=== PATIENT | female | born 1945 | race Caucasian/White ===

== ENCOUNTER 2017-11-20 18:53 | Emergency (ER) | payer BC, OTHER ==
[~2017-11-20] VITALS: Ht 152.4 cm; Wt 87.6 kg
[~2017-11-20 18:53] MED LIST: ACET-1256 PO; ARTIOIN2 OP; ASPI-428 PO; DABI150C3 PO; EZET10TA47 PO; HYDR25TA4 PO; LPR25 PO; OMEP20CA59 PO; RANO500T PO; VSC/5 PO
[2017-11-20 19:00] VITALS: TEMP 36.8; Ht 152.4 cm; Wt 87.6 kg
--- NOTE | 2017-11-20 19:35 | DIAGNOSTIC IMAGING REPORT ---
CT SCAN OF THE BRAIN WITHOUT IV CONTRAST CLINICAL HISTORY: Fall. Head injury. COMPARISON STUDY: CT of the brain dated 05/05/2016. TECHNIQUE: Unenhanced axial CT scan of the brain is performed from the vertex to the skull base. A dose lowering technique was utilized adhering to the principles of ALARA. CT DOSE: 537.48 mGy.cm FINDINGS: Brain parenchyma: There are age-related involutional changes noting mild subcortical and periventricular microangiopathic change. There is no hemorrhage, mass effect, or evidence of acute territorial ischemia by CT criteria. A chronic lacunar infarct is seen in the right adler radiata. Olivares-white matter is preserved. No extra-axial fluid collection is seen. Ventricles, sulci, cisterns: Prominent secondary to involutional change. Intracranial vasculature: There is atherosclerotic calcification of the cavernous carotid arteries. Calvarium: The skeletal structures are osteopenic. No depressed calvarial fracture is seen. Sinuses and mastoids: The visualized paranasal sinuses are clear. The mastoid air cells are well pneumatized. Orbits: The bony orbits are grossly intact. There is a left ocular lens implant. IMPRESSION: There is no hemorrhage, mass effect, or evidence of acute territorial ischemia by CT criteria. Electronically signed by: Jovi Stone M.D. 11/20/2017 7:34 PM Dictated Date/Time: 11/20/2017 7:32 PM
[2017-11-20] MEDS ORDERED: LPT/40 PO (19:58)
[2017-11-20] MEDS ORDERED: DTRSR/10 PO (19:58)
[2017-11-20] MEDS ORDERED: WARF4TAB PO (19:58)
[2017-11-20] MEDS ORDERED: PANT40TA PO (19:58)
--- NOTE | 2017-11-20 20:36 | DIAGNOSTIC IMAGING REPORT ---
CT SCAN OF THE CERVICAL SPINE CLINICAL HISTORY: Fall. Neck pain. COMPARISON STUDY: No priors. TECHNIQUE: CT scan of the cervical spine is performed from the skull base to the upper thoracic spine. Images are reviewed in the axial, sagittal, and coronal planes. IV contrast was not administered for this examination. A dose lowering technique was utilized adhering to the principles of ALARA. CT DOSE: 250.09 mGy.cm FINDINGS: Skeletal structures: The skeletal structures are osteopenic. There is no evidence of fracture or subluxation involving the cervical spine. Vertebral body height and alignment are maintained. There is straightening of the cervical lordosis. Anterior osteophytes are seen throughout. The odontoid process and lateral masses are intact. The atlantoaxial articulation is preserved noting advanced productive degenerative change with bony overgrowth, sclerosis, and narrowing of the interval. The spinous processes appear intact. There is moderate multilevel cervical spondylosis. Uncovertebral and facet arthropathy contribute to neural foraminal stenosis at several levels. Intervertebral discs: There is moderate to advanced disc space narrowing seen at C5-C6 and C6-C7. Mild disc space narrowing is seen at the remaining cervical levels. Central canal: Large posterior disc osteophyte complexes seen at C3-C4, C4-C5, and C5-C6 likely contribute to multilevel acquired compromise of the central canal. Soft tissues: The prevertebral and paraspinous soft tissues are within normal limits. A punctate calcified sialolith is noted in the left parotid gland. Calvarium: The visualized calvarium at the skull base appears intact. Brain parenchyma: Partially visualized brain parenchyma the skull base is within normal limits. Sinuses and mastoids: Trace mucosal thickening is seen in the left maxillary antra. The mastoid air cells are well pneumatized. Lung apices: Clear as visualized. IMPRESSION: 1. There is no evidence of fracture or subluxation involving the cervical spine. 2. Osteopenia and spondylotic change as above. Electronically signed by: Jovi Stone M.D. 11/20/2017 8:35 PM Dictated Date/Time: 11/20/2017 8:31 PM
[2017-11-20 21:24] VITALS: BP 140/80; PULSE 57; O2SAT 95
--- NOTE | 2017-11-21 00:32 | EMERGENCY ROOM VISIT NOTE ---
History First contact with patient: 19:04 Chief Complaint: FALL Stated Complaint: FELL, STRIKING HEAD AGAINST HOUSE SIDING History of Present Illness The patient is a 72 year old female who presents to the Emergency Room with complaints of a headache after tripping and falling against the sliding of her house this afternoon. The patient reports that she tripped on a yañez. The patient reports that she otherwise landed on all fours, but denies any injury to her extremities, chest, neck or back. She reports mostly a frontal headache with an unusual fullness posteriorly. She also reports initial visual disturbance that has resolved. She has noticed light and motion sensitivity since the injury. She also had some mild nausea on her way to the emergency department. The patient denies any prior history of intracranial bleed. 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 She is currently on Coumadin. She does report persistent mild left- sided weakness. The patient rates her headache a 5 out of 10. Review of Systems 10 system review was performed and was negative except for pertinent positives and negatives as indicated in history of present illness Past Medical/Surgical History Medical Problems: (1) History of breast cancer (2) Hypertension (3) Paroxysmal atrial fibrillation Surgical Problems: (1) Status post cardiac catheterization (2) Status post cataract extraction (3) Status post cholecystectomy (4) Status post hysterectomy (5) Status post partial mastectomy of right breast (6) Status post tonsillectomy Family History Asthma SISTER SISTER COPD (chronic obstructive pulmonary disease) FATHER Myocardial infarction MOTHER Stroke MOTHER SISTER Social History Smoking Status: Never Smoker Drug Use: none Marital Status: Housing Status: lives with family Current/Historical Medications Scheduled Aspirin (Ecotrin Low Strength), 81 MG PO DAILY Atorvastatin (Lipitor), 40 MG PO DAILY Ezetimibe (Zetia), 10 MG PO DAILY Hydrochlorothiazide (Hctz), 25 MG PO DAILY Oxybutynin Chloride (Oxybutynin Chloride ER), 10 MG PO DAILY Pantoprazole (Protonix), 40 MG PO DAILY Ranolazine (Ranexa), 1 TAB PO BID Warfarin Sodium (Coumadin), 4 MG PO DAILY Physical Exam Vital Signs Date Time Temp Pulse Resp B/P (MAP) Pulse Ox O2 Delivery O2 Flow Rate FiO2 11/20/17 21:24 57 18 140/80 95 11/20/17 19:00 36.8 60 18 173/73 95 Room Air Physical Exam CONSTITUTIONAL: Healthy and well nourished. Alert and oriented X 3 with positive affect. GCS 15. Patient does not appear in any acute distress. HEENT: Normocephalic, atraumatic. Pupils equal, round and reactive. No epistaxis, subconjunctival hemorrhage, hemotympanum, raccoon's eyes or chang sign. No facial abrasions, lacerations or hematomas noted. NECK: Full active range of motion without discomfort. RESPIRATORY: Clear to auscultation bilaterally with no wheezing, crackles, rhonchi or stridor. CARDIOVASCULAR: Irregular rate and rhythm with no murmurs, rubs or gallops. MUSCULOSKELETAL: Full range of motion of all joints without discomfort. INTEGUMENTARY: No rash or other significant dermatologic conditions noted. NEUROLOGIC: Cranial nerves II-XII grossly intact. No focal neurologic deficits noted. Negative pronator drift. Medical Decision & Procedures ER Provider Diagnostic Interpretation: Noncontrast CT of the head does not show any intracranial bleed or other concerning findings. Radiologist report is as follows: CT SCAN OF THE BRAIN WITHOUT IV CONTRAST CLINICAL HISTORY: Fall. Head injury. COMPARISON STUDY: CT of the brain dated 05/05/2016. TECHNIQUE: Unenhanced axial CT scan of the brain is performed from the vertex to the skull base. A dose lowering technique was utilized adhering to the principles of ALARA. CT DOSE: 537.48 mGy.cm FINDINGS: Brain parenchyma: There are age-related involutional changes noting mild subcortical and periventricular microangiopathic change. There is no hemorrhage, mass effect, or evidence of acute territorial ischemia by CT criteria. A chronic lacunar infarct is seen in the right adler radiata. Olivares-white matter is preserved. No extra-axial fluid collection is seen. Ventricles, sulci, cisterns: Prominent secondary to involutional change. Intracranial vasculature: There is atherosclerotic calcification of the cavernous carotid arteries. Calvarium: The skeletal structures are osteopenic. No depressed calvarial fracture is seen. Sinuses and mastoids: The visualized paranasal sinuses are clear. The mastoid air cells are well pneumatized. Orbits: The bony orbits are grossly intact. There is a left ocular lens implant. IMPRESSION: There is no hemorrhage, mass effect, or evidence of acute territorial ischemia by CT criteria. Noncontrast CT of the cervical spine shows degenerative changes without any acute fractures or subluxations. Radiologist report is as follows: CT SCAN OF THE CERVICAL SPINE CLINICAL HISTORY: Fall. Neck pain. COMPARISON STUDY: No priors. TECHNIQUE: CT scan of the cervical spine is performed from the skull base to the upper thoracic spine. Images are reviewed in the axial, sagittal, and coronal planes. IV contrast was not administered for this examination. A dose lowering technique was utilized adhering to the principles of ALARA. CT DOSE: 250.09 mGy.cm FINDINGS: Skeletal structures: The skeletal structures are osteopenic. There is no evidence of fracture or subluxation involving the cervical spine. Vertebral body height and alignment are maintained. There is straightening of the cervical lordosis. Anterior osteophytes are seen throughout. The odontoid process and lateral masses are intact. The atlantoaxial articulation is preserved noting advanced productive degenerative change with bony overgrowth, sclerosis, and narrowing of the interval. The spinous processes appear intact. There is moderate multilevel cervical spondylosis. Uncovertebral and facet arthropathy contribute to neural foraminal stenosis at several levels. Intervertebral discs: There is moderate to advanced disc space narrowing seen at C5-C6 and C6-C7. Mild disc space narrowing is seen at the remaining cervical levels. Central canal: Large posterior disc osteophyte complexes seen at C3-C4, C4-C5, and C5-C6 likely contribute to multilevel acquired compromise of the central canal. Soft tissues: The prevertebral and paraspinous soft tissues are within normal limits. A punctate calcified sialolith is noted in the left parotid gland. Calvarium: The visualized calvarium at the skull base appears intact. Brain parenchyma: Partially visualized brain parenchyma the skull base is within normal limits. Sinuses and mastoids: Trace mucosal thickening is seen in the left maxillary antra. The mastoid air cells are well pneumatized. Lung apices: Clear as visualized. IMPRESSION: 1. There is no evidence of fracture or subluxation involving the cervical spine. 2. Osteopenia and spondylotic change as above. ED Course Patient history and physical exam were performed. Nurse's notes were reviewed. Vital signs were reviewed, showing a blood pressure of 173/73. The patient refused any analgesics or antiemetics. Noncontrast CT of the head and cervical spine were normal. The patient was advised that her symptoms are consistent with a mild concussion. A concussion handout was provided. The patient was encouraged to restrain from strenuous activities until symptoms improve. She was encouraged to take Tylenol as needed for pain. She was instructed to return to the emergency department for any progressively worsening symptoms, otherwise follow-up with her PCP as needed. The patient was happy with plan of care, voiced understanding of all discharge instructions, and rated her overall discomfort a 4 out of 10 at the conclusion of my exam. She refused any analgesics prior to discharge. The case was also evaluated by Dr. Roque, ED attending physician, who agrees with workup and plan of care. Medical Decision Medication Reconcilliation Current Medication List: was personally reviewed by me Blood Pressure Screening Patient's blood pressure: Elevated blood pressure Blood pressure disposition: Elevated BP felt to be situational Impression Primary Impression: Concussion Additional Impression: Fall from ground level Departure Information Referrals Hu Pereyra M.D. (PCP) Patient Instructions My [facility] Health Problem Qualifiers Primary Impression: Concussion Encounter type: initial encounter Loss of consciousness presence/duration: without LOC Qualified Codes: S06.0X0A - Concussion without loss of consciousness, initial encounter
== END 2017-11-20 21:25 | disposition home or self-care (01) ==
LOC: C.EDB 18:54
DX: S06.0X0A Concussion without loss of consciousness, initial encounter (principal); W01.0XXA Fall on same level from slipping, tripping and stumbling without subsequent striking against object, initial encounter; R53.1 Weakness; I10 Essential (primary) hypertension; I48.91 Unspecified atrial fibrillation; Z79.01 Long term (current) use of anticoagulants; Z79.82 Long term (current) use of aspirin; Z79.899 Other long term (current) drug therapy; Z82.49 Family history of ischemic heart disease and other diseases of the circulatory system